=== PATIENT | female | born 1945 | race Caucasian/White ===

== ENCOUNTER → 2017-06-22 | Outpatient (CLI) | payer OTHER, MEDICARE ==
[~2017-06-22] MED LIST: AMLO10TA2 PO; CEPH-37 PO; CYAN500L3 PO; FURO20TA PO; GABA600T PO; MONT10TA23 PO; TRAM50TA2 PO; ZOLP10TA PO
== END | disposition home or self-care (01) ==
LOC: LAB 07:02
PROVIDERS: ATTEND Physician Assistant
DX: N39.0 Urinary tract infection, site not specified (principal)
CPT/HCPCS: 87086

== ENCOUNTER 2018-07-03 14:37 | Inpatient (IN) | payer OTHER, MEDICARE ==
[~2018-07-03] VITALS: Ht 165.1 cm; Wt 89.0 kg
[2018-07-03 15:36] LABS: Basophils # (auto) 0.1 uL; Basophils % (auto) 1.3 % (0.0-2.0); Eosinophils # (auto) 0.2 uL; Eosinophils % (auto) 1.8 % (0.0-7.0); Hematocrit 44.6 % (36.0-46.0); Hemoglobin 15.6 g/dL (12.2-16.2); Lymphocytes # (auto) 4.1 uL; Lymphocytes % (auto) 39.9 % (10.0-50.0); Mean Corpuscular Hemoglobin 33.9 pg (28.0-32.0); Mean Corpuscular Volume 96.8 fL (80.0-100.0); Monocytes # (auto) 1.3 uL; Monocytes % (auto) 12.5 % (0.0-12.0); Neutrophils # (auto) 4.5 uL; Neutrophils % (auto) 44.5 % (37.0-80.0); Nucleated Red Blood Cells % 0.1 %; Platelet Count (auto) 336 10^3/uL (140-450); Red Blood Cells 4.61 10^6/uL (4.0-5.20); Red Cell Distribution Width 13.1 % (11.8-14.3); White Blood Cell 10.2 10^3/uL (4.4-10.8)
[2018-07-03 15:49] LABS: Alanine Aminotransferase 46 U/L (13-56); Albumin 3.8 g/dL (3.4-5.0); Alkaline Phosphatase 61 U/L (45-117); Anion Gap 8 (5-15); Aspartate Aminotransferase 23 U/L (15-37); BUN/Creatinine Ratio 6.1; Bilirubin, Total 0.4 mg/dL (0.2-1.0); Blood Urea Nitrogen 19 mg/dL (7-18); Calcium 8.9 mg/dL (8.5-10.1); Carbon Dioxide 27 mmol/L (21-32); Chloride 100 mmol/L (98-107); GFR African American 19 mL/min; GFR Non-African American 16 mL/min; Glucose 157 mg/dL (74-106); Sodium 135 mmol/L (136-145); Total Protein 7.3 g/dL (6.4-8.2)
[2018-07-03] MEDS ORDERED: NITROGLYCERIN 0.4 MG SL TAB SL ONE (16:00)
[2018-07-03 19:31] LABS: Urine Bacteria FEW /hpf (None Seen); Urine Blood Negative /uL (Negative); Urine Mucus FEW (None Seen); Urine Specific Gravity 1.016 (1.001-1.035); Urine WBC 2 /hpf (0 - 5)
[2018-07-03] MEDS ORDERED: MORPHINE SULF INJ 2 MG/ML SYRINGE 1ML IV ONE (20:45)
[2018-07-03] MEDS ORDERED: POTASSIUM CHL 20 Meq TABLET PO ONE (21:00)
[2018-07-03] MEDS ORDERED: ONDANSETRON HCL 4 MG/2 ML VIAL IV PRN (21:00)
[2018-07-03] MEDS ORDERED: DEXTROSE (50%) 50ML SYRG IV PRN (21:00)
[2018-07-03] MEDS ORDERED: ACETAMINOPHEN 325 MG TAB PO PRN (21:00)
[2018-07-03] MEDS ORDERED: cefTRIAXone 1GM/10ml IVPUSH 10 ML IV ONE (21:00)
[2018-07-03] MEDS ORDERED: NITROGLYCERIN 0.4 MG SL TAB SL PRN (21:30)
[2018-07-03] MEDS ORDERED: MORPHINE SULF INJ 2 MG/ML SYRINGE 1ML IV PRN (21:30)
[2018-07-03] MEDS: GABAPENTIN 300 MG CAP PO SCH (22:00)
[2018-07-03 22:45] VITALS: BP 129/62
[2018-07-03 23:05] VITALS: BP 129/62
[2018-07-03] MEDS: MONTELUKAST SODIUM 10 MG TAB PO SCH (23:13)
[2018-07-03] MEDS: ACCU-CHEK COMFORT CURVE STRIP VI SCH (23:13)
[2018-07-03] MEDS: InsuLIN REG 1unit/0.01ml Soln (100units/ml) SC SCH (23:18)
[2018-07-03] MEDS ORDERED: LINA145C OR (23:31)
[2018-07-03] MEDS ORDERED: ZOLP10TA PO (23:31)
[2018-07-03] MEDS ORDERED: METF-370 PO (23:31)
[2018-07-03] MEDS ORDERED: LISI2.5T47 PO (23:31)
[2018-07-04] MEDS ORDERED: TEMAZEPAM 15 MG CAP PO ONE (01:30)
[2018-07-04] MEDS: HYDROcodone-ACET 5/325MG TAB PO PRN ×2 (04:00→08:21)
[2018-07-04 05:00] VITALS: BP 130/69
[2018-07-04 05:59] LABS: Basophils # (auto) 0.3 uL; Eosinophils # (auto) 0.4 uL; Eosinophils % (auto) 2.7 % (0.0-7.0); Hematocrit 46.4 % (36.0-46.0); Hemoglobin 15.7 g/dL (12.2-16.2); Lymphocytes # (auto) 7.4 uL; Lymphocytes % (auto) 49.8 % (10.0-50.0); Mean Corpuscular Hemoglobin 32.5 pg (28.0-32.0); Mean Corpuscular Hgb Conc. 33.8 g/dL (32.0-36.0); Mean Corpuscular Volume 96.3 fL (80.0-100.0); Monocytes % (auto) 13.3 % (0.0-12.0); Neutrophils # (auto) 4.8 uL; Neutrophils % (auto) 32.2 % (37.0-80.0); Nucleated Red Blood Cells % 0.1 %; Platelet Count (auto) 293 10^3/uL (140-450); Red Blood Cells 4.82 10^6/uL (4.0-5.20); Red Cell Distribution Width 13.2 % (11.8-14.3); White Blood Cell 14.9 10^3/uL (4.4-10.8)
[2018-07-04] MEDS: ACCU-CHEK COMFORT CURVE STRIP VI SCH ×3 (06:00→21:14)
[2018-07-04] MEDS: InsuLIN REG 1unit/0.01ml Soln (100units/ml) SC SCH ×3 (06:00→21:14)
[2018-07-04 06:22] LABS: Albumin 3.5 g/dL (3.4-5.0); BUN/Creatinine Ratio 12.1; Calcium 9.4 mg/dL (8.5-10.1); Potassium 3.8 mmol/L (3.5-5.1)
[2018-07-04 06:25] LABS: Bilirubin, Total 0.5 mg/dL (0.2-1.0)
[2018-07-04] MEDS: cefTRIAXone 1GM/10ml IVPUSH 10 ML IV SCH (08:26)
[2018-07-04] MEDS ORDERED: TRAM-297 PO (08:34)
[2018-07-04 09:00] VITALS: BP 116/67
[2018-07-04] MEDS: GABAPENTIN 300 MG CAP PO SCH (10:00)
[2018-07-04] MEDS: ASPirin 81 mg TAB PO SCH (10:32)
[2018-07-04] MEDS: PANTOPRAZOLE 40 MG TAB PO SCH (10:32)
[2018-07-04 13:00] VITALS: BP 113/58
[2018-07-04 17:00] VITALS: BP 118/80
[2018-07-04] MEDS ORDERED: LISI-706 PO (18:18)
[2018-07-04] MEDS: MONTELUKAST SODIUM 10 MG TAB PO SCH (21:10)
[2018-07-04 22:00] VITALS: BP 129/61
[2018-07-04] MEDS ORDERED: ZOLPIDEM TARTRATE 5 MG TAB PO ONE (22:00)
[2018-07-05 05:00] VITALS: BP 114/60
[2018-07-05] MEDS ORDERED: LINACLOTIDE 145 MCG PO SCH (06:00)
[2018-07-05 06:50] LABS: Basophils # (auto) 0.1 uL; Basophils % (auto) 1.3 % (0.0-2.0); Eosinophils # (auto) 0.4 uL; Eosinophils % (auto) 5.3 % (0.0-7.0); Hematocrit 42.5 % (36.0-46.0); Hemoglobin 14.8 g/dL (12.2-16.2); Lymphocytes % (auto) 49.5 % (10.0-50.0); Mean Corpuscular Hemoglobin 33.8 pg (28.0-32.0); Mean Corpuscular Hgb Conc. 34.7 g/dL (32.0-36.0); Mean Corpuscular Volume 97.4 fL (80.0-100.0); Monocytes # (auto) 1.1 uL; Neutrophils # (auto) 2.4 uL; Neutrophils % (auto) 29.9 % (37.0-80.0); Nucleated Red Blood Cells % 0.3 %; Platelet Count (auto) 339 10^3/uL (140-450); Red Blood Cells 4.37 10^6/uL (4.0-5.20); Red Cell Distribution Width 13.1 % (11.8-14.3); White Blood Cell 8.1 10^3/uL (4.4-10.8)
[2018-07-05] MEDS: InsuLIN REG 1unit/0.01ml Soln (100units/ml) SC SCH ×2 (07:00→11:30)
[2018-07-05 07:21] LABS: BUN/Creatinine Ratio 18.4; Calcium 8.8 mg/dL (8.5-10.1); Magnesium 2.5 mg/dL (1.6-2.6); Phosphorus 3.3 mg/dL (2.5-4.90); Potassium 3.7 mmol/L (3.5-5.1); Uric Acid 8.4 mg/dL (2.6-6.0)
[2018-07-05] MEDS: ACCU-CHEK COMFORT CURVE STRIP VI SCH ×2 (07:27→11:30)
[2018-07-05] MEDS ORDERED: ADENOSINE 75 MG in GIVE UN-DILUTED 0 ML IV STA (08:12)
[2018-07-05] MEDS: cefTRIAXone 1GM/10ml IVPUSH 10 ML IV SCH (08:19)
[2018-07-05 08:59] VITALS: BP 125/63
[2018-07-05] MEDS: PANTOPRAZOLE 40 MG TAB PO SCH (09:41)
[2018-07-05] MEDS: ASPirin 81 mg TAB PO SCH (09:41)
[2018-07-05] MEDS: GABAPENTIN 300 MG CAP PO SCH (09:42)
[2018-07-05 10:13] VITALS: BP 131/68
[2018-07-05 13:04] VITALS: BP 135/80
[2018-07-05] MEDS ORDERED: TRAMADOL 100 MG PO SCH (18:00)
[2018-07-06] MEDS ORDERED: LINACLOTIDE 145 MCG PO SCH (08:00)
== END 2018-07-05 14:55 | disposition home or self-care (01) | DRG 302 ==
LOC: ER 14:41 → TELE 14:42 → MERGE 14:42 → TELE-WESTW 22:54
PROVIDERS: ADMIT Nurse Practitioner; ATTEND Internal Medicine
DX: I25.10 Atherosclerotic heart disease of native coronary artery without angina pectoris (principal); N17.0 Acute kidney failure with tubular necrosis; E11.9 Type 2 diabetes mellitus without complications; E78.5 Hyperlipidemia, unspecified; E86.0 Dehydration; I10 Essential (primary) hypertension; Z82.49 Family history of ischemic heart disease and other diseases of the circulatory system; Z83.3 Family history of diabetes mellitus; Z90.710 Acquired absence of both cervix and uterus; Z88.2 Allergy status to sulfonamides; I69.398 Other sequelae of cerebral infarction; Z84.89 Family history of other specified conditions; Z81.1 Family history of alcohol abuse and dependence
CPT/HCPCS: 36415; 71045; 76775; 78452; 80048; 80053; 81001; 82962; 83036; 83735; 84100; 84443; 84484; 84550; 85025; 93005; 93017; 93306; J0153; J0696; J1815

== ENCOUNTER → 2022-09-21 | Outpatient (CLI) | payer MEDICARE, BC ==
[~2022-09-21] MED LIST changes: +AMLO-496 PO; -AMLO10TA2 PO; +FURO1TAB33 PO; -FURO20TA PO; +IOHEXOL 350 MG/ML 100ML IJ ONE; +LINA145C OR; +LISI-706 PO; +METF-370 PO; +READI-CAT 2 (BARIUM SULF)(VANILLA SMOOTHIE) 450ML ONE; +TRAM-297 PO
[2022-09-21 11:00] VITALS: BP 152/65
== END | disposition home or self-care (01) ==
LOC: Rad HDHVI 10:48
PROVIDERS: ATTEND Internal Medicine Cardiovascular Disease
DX: I63.9 Cerebral infarction, unspecified (principal); R94.4 Abnormal results of kidney function studies
CPT/HCPCS: 36415; 70450; 82565; 84520; G0463; Q9967

== ENCOUNTER → 2022-09-22 | Outpatient (CLI) | payer OTHER, MEDICARE ==
[~2022-09-22] MED LIST changes: -IOHEXOL 350 MG/ML 100ML IJ ONE; -READI-CAT 2 (BARIUM SULF)(VANILLA SMOOTHIE) 450ML ONE
[2022-09-22 11:10] VITALS: BP 127/68
[2022-09-22 11:41] VITALS: BP 118/74
== END | disposition home or self-care (01) ==
LOC: Rad HDHVI 10:55
PROVIDERS: ATTEND Internal Medicine Cardiovascular Disease
DX: K57.30 Diverticulosis of large intestine without perforation or abscess without bleeding (principal); M47.816 Spondylosis without myelopathy or radiculopathy, lumbar region; K76.0 Fatty (change of) liver, not elsewhere classified; K29.40 Chronic atrophic gastritis without bleeding
CPT/HCPCS: 74177; G0463

== ENCOUNTER → 2022-09-25 | Outpatient (CLI) | payer OTHER, MEDICARE | END | disposition home or self-care (01) | LOC: Rad HDHVI 12:45 | PROVIDERS: ATTEND Internal Medicine Cardiovascular Disease | DX: I10 Essential (primary) hypertension (principal); E78.5 Hyperlipidemia, unspecified | CPT/HCPCS: 93306 ==

== ENCOUNTER → 2022-10-07 | Outpatient (CLI) | payer OTHER, MEDICARE | END | disposition home or self-care (01) | LOC: Rad HDHVI 10:56 | PROVIDERS: ATTEND Internal Medicine Cardiovascular Disease | DX: I10 Essential (primary) hypertension (principal); E78.5 Hyperlipidemia, unspecified | CPT/HCPCS: 93880 ==

== ENCOUNTER → 2022-10-09 | Outpatient (CLI) | payer OTHER, MEDICARE ==
[~2022-10-09] VITALS: Ht 167.6 cm; Wt 83.9 kg
[~2022-10-09] MED LIST changes: +ADENOSINE 70 MG in GIVE UN-DILUTED 0 ML IV ONE; +ADENOSINE 90 MG/30 ML INJ IV ONE
== END | disposition home or self-care (01) ==
LOC: Rad HDHVI 09:01
PROVIDERS: ATTEND Internal Medicine Cardiovascular Disease
DX: R07.9 Chest pain, unspecified (principal); I73.9 Peripheral vascular disease, unspecified; I63.9 Cerebral infarction, unspecified; E78.00 Pure hypercholesterolemia, unspecified; I10 Essential (primary) hypertension; E11.9 Type 2 diabetes mellitus without complications; Z82.49 Family history of ischemic heart disease and other diseases of the circulatory system; Z79.84 Long term (current) use of oral hypoglycemic drugs; Z79.899 Other long term (current) drug therapy
CPT/HCPCS: 78452; 93005; 96374; 96375; A9500; J0153

== ENCOUNTER → 2022-11-16 | Outpatient (CLI) | payer OTHER, MEDICARE, BC ==
[~2022-11-16] MED LIST changes: -ADENOSINE 70 MG in GIVE UN-DILUTED 0 ML IV ONE; -ADENOSINE 90 MG/30 ML INJ IV ONE
== END | disposition home or self-care (01) ==
LOC: Rad HDHVI 13:06
PROVIDERS: ATTEND Internal Medicine Cardiovascular Disease
DX: I73.9 Peripheral vascular disease, unspecified (principal); E78.5 Hyperlipidemia, unspecified
CPT/HCPCS: 93925

== ENCOUNTER 2023-01-24 16:42 | Inpatient (IN) | payer BC, MEDICARE, OTHER ==
[~2023-01-24] VITALS: Ht 165.1 cm; Wt 87.3 kg
[2023-01-24] MEDS ORDERED: MORPHINE SULFATE 4 MG/ML SYR/VIAL IV ONE (17:30)
[2023-01-24] MEDS ORDERED: SODIUM CHLORIDE 0.9% 500 ML IVB ONE (17:30)
[2023-01-24] MEDS ORDERED: ONDANSETRON HCL 4 MG/2 ML VIAL IV ONE (17:30)
[2023-01-24] MEDS ORDERED: PANTOPRAZOLE 40 MG/10 ML VIAL INJ IV ONE (17:30)
[2023-01-24 17:59] LABS: Basophils # (auto) 0.2 10 ^3/uL (0-0.2); Basophils % (auto) 1.1 % (0.0-2.0); Eosinophils # (auto) 0.3 10 ^3/uL (0-0.8); Eosinophils % (auto) 1.4 % (0.0-7.0); Hematocrit 41.5 % (36.0-46.0); Hemoglobin 14.1 g/dL (12.2-16.2); Lymphocytes # (auto) 6.2 10 ^3/uL (0.4-5.4); Lymphocytes % (auto) 34.4 % (10.0-50.0); Mean Corpuscular Hemoglobin 33.4 pg (28.0-32.0); Mean Corpuscular Volume 98.2 fL (80.0-100.0); Monocytes # (auto) 1.4 10 ^3/uL (0-1.3); Monocytes % (auto) 7.7 % (0.0-12.0); Neutrophils # (auto) 9.9 10 ^3/uL (1.6-8.6); Neutrophils % (auto) 55.4 % (37.0-80.0); Nucleated Red Blood Cells % 0.1 %; Red Blood Cells 4.23 10^6/uL (4.0-5.20)
[2023-01-24 18:13] LABS: Albumin 3.8 g/dL (3.4-5.0); Calcium 9.5 mg/dL (8.5-10.1); Potassium 3.5 mmol/L (3.5-5.1)
[2023-01-24 18:17] LABS: BUN/Creatinine Ratio 18.4; Bilirubin, Total 0.3 mg/dL (0.2-1.0); Total Protein 7.2 g/dL (6.4-8.2)
[2023-01-25 04:39] LABS: Urine Blood Negative /uL (Negative); Urine Specific Gravity 1.025 (1.001-1.035)
[2023-01-25 04:46] LABS: Urine Bacteria None Seen /hpf (None Seen)
[2023-01-25 04:47] LABS: Urine WBC 6 /hpf (0 - 5)
[2023-01-25] MEDS ORDERED: PIPERACILLIN-TAZOB 3.375GM 100 ML IV ONE (05:45)
[2023-01-25] MEDS ORDERED: ALBUTEROL SULF HFA 90MCG INH 200DOSE IN PRN (09:45)
[2023-01-25] MEDS ORDERED: cefTRIAXone 1GM/50ML D5W 50 ML IV ONE (09:45)
[2023-01-25] MEDS ORDERED: MORPHINE SULFATE INJ 2 MG/ml SYRG IV PRN (09:45)
[2023-01-25] MEDS ORDERED: NITROGLYCERIN 0.4 MG SL TAB SL PRN (09:45)
[2023-01-25] MEDS ORDERED: DEXTROSE (50%) 50ML SYRG IV PRN (09:45)
[2023-01-25] MEDS ORDERED: SODIUM CHLORIDE 0.9% 1,000 ML IV ONE (09:45)
[2023-01-25] MEDS ORDERED: ALBUTEROL SULF 2.5 MG/0.5ML(0.5%) NEB SOLN NEB PRN (10:00)
[2023-01-25] MEDS ORDERED: DexAMETHasone SOD PHOS 10MG/1ML VIAL INJ IV SCH (10:00)
[2023-01-25] MEDS ORDERED: PANTOPRAZOLE 40 MG/10 ML VIAL INJ IV SCH (10:00)
[2023-01-25] MEDS ORDERED: ZINC SULFATE 220mg CAP or TAB PO SCH (10:00)
[2023-01-25] MEDS ORDERED: CHOLECALCIFEROL (VITD3) 2,000 UNIT CAP/TAB PO SCH (10:00)
[2023-01-25] MEDS ORDERED: ASCORBIC ACID 1,000 MG TAB PO SCH (10:00)
[2023-01-25] MEDS ORDERED: amLODIPine BESYLATE 5 MG TAB PO SCH (10:18)
[2023-01-25 10:22] VITALS: BP 110/59
[2023-01-25] MEDS: ACCU-CHEK COMFORT CURVE STRIP VI SCH ×3 (13:29→22:00)
[2023-01-25] MEDS: InsuLIN REG 1unit/0.01ml Soln (100units/ml) SC SCH ×3 (13:32→22:39)
[2023-01-25] MEDS: ENOXAPARIN SOD 40 MG/0.4 ML SYRINGE SC SCH ×2 (13:40→22:40)
[2023-01-25 14:01] LABS: Lactic Acid w/Reflex 2.1 mmol/L (0.4-2.0)
[2023-01-25 14:06] LABS: Alanine Aminotransferase 32 U/L (13-56); Albumin 3.5 g/dL (3.4-5.0); Anion Gap 7 (5-15); Aspartate Aminotransferase 19 U/L (15-37); BUN/Creatinine Ratio 27.3; Blood Urea Nitrogen 33 mg/dL (7-18); Calcium 9.1 mg/dL (8.5-10.1); Carbon Dioxide 27 mmol/L (21-32); Chloride 103 mmol/L (98-107); GFR African American 56 mL/min; GFR Non-African American 46 mL/min; Glucose 129 mg/dL (74-106); Magnesium 2.2 mg/dL (1.6-2.6); Potassium 3.5 mmol/L (3.5-5.1); Sodium 137 mmol/L (136-145)
[2023-01-25 14:08] LABS: Alkaline Phosphatase 58 U/L (45-117); Basophils # (auto) 0.1 10 ^3/uL (0-0.2); Basophils % (auto) 0.4 % (0.0-2.0); Bilirubin, Total 0.6 mg/dL (0.2-1.0); Eosinophils # (auto) 0.2 10 ^3/uL (0-0.8); Hematocrit 40.9 % (36.0-46.0); Hemoglobin 13.9 g/dL (12.2-16.2); Lymphocytes # (auto) 4.7 10 ^3/uL (0.4-5.4); Lymphocytes % (auto) 22.3 % (10.0-50.0); Mean Corpuscular Hemoglobin 33.5 pg (28.0-32.0); Mean Corpuscular Hgb Conc. 33.9 g/dL (32.0-36.0); Mean Corpuscular Volume 98.8 fL (80.0-100.0); Monocytes # (auto) 2.1 10 ^3/uL (0-1.3); Neutrophils # (auto) 14.1 10 ^3/uL (1.6-8.6); Neutrophils % (auto) 66.3 % (37.0-80.0); Red Blood Cells 4.14 10^6/uL (4.0-5.20); Red Cell Distribution Width 13.8 % (11.8-14.3); White Blood Cell 21.3 10^3/uL (4.4-10.8)
[2023-01-25 14:11] LABS: Cholesterol 150 mg/dL (< 200)
[2023-01-25 14:14] LABS: HDL Cholesterol 60 mg/dL (40-59); LDL Cholesterol 78 mg/dL (< 100); Triglycerides 182 mg/dL (< 150)
[2023-01-25 14:32] LABS: Thyroid Stimulating Hormone 0.95 uIU/mL (0.358-3.74)
[2023-01-25] MEDS: GABAPENTIN 300 MG CAP PO SCH ×2 (15:34→22:51)
[2023-01-25] MEDS: SODIUM CHLORIDE 0.9% 1,000 ML IV SCH ×2 (15:34→19:23)
[2023-01-25 16:58] LABS: CRP High Sensitivity 3.23 mg/dL (< 0.3)
[2023-01-25] MEDS ORDERED: ZOLPIDEM TARTRATE 5 MG TAB PO SCH (22:00)
[2023-01-25] MEDS: ONDANSETRON HCL 4 MG/2 ML VIAL IV PRN (22:39)
[2023-01-25] MEDS: MORPHINE SULFATE INJ 2 MG/ml SYRG IV PRN (22:51)
[2023-01-26] MEDS: MORPHINE SULFATE INJ 2 MG/ml SYRG IV PRN ×2 (03:24→07:48)
[2023-01-26] MEDS: SODIUM CHLORIDE 0.9% 1,000 ML IV SCH (03:54)
[2023-01-26] MEDS: GABAPENTIN 300 MG CAP PO SCH (06:00)
[2023-01-26 06:30] LABS: Potassium 3.9 mmol/L (3.5-5.1)
[2023-01-26 06:39] LABS: BUN/Creatinine Ratio 25.2; Bilirubin, Total 0.4 mg/dL (0.2-1.0); Calcium 8.2 mg/dL (8.5-10.1); Total Protein 6.3 g/dL (6.4-8.2)
[2023-01-26 06:44] LABS: Basophils # (auto) 0 10 ^3/uL (0-0.2); Eosinophils # (auto) 0 10 ^3/uL (0-0.8); Hemoglobin 12.6 g/dL (12.2-16.2)
[2023-01-26 06:47] LABS: Basophils % (auto) 0.2 % (0.0-2.0); Hematocrit 37.7 % (36.0-46.0); Lymphocytes # (auto) 2.5 10 ^3/uL (0.4-5.4); Lymphocytes % (auto) 13.6 % (10.0-50.0); Mean Corpuscular Hemoglobin 33.8 pg (28.0-32.0); Mean Corpuscular Hgb Conc. 33.3 g/dL (32.0-36.0); Mean Corpuscular Volume 101.7 fL (80.0-100.0); Monocytes % (auto) 5.4 % (0.0-12.0); Neutrophils # (auto) 14.8 10 ^3/uL (1.6-8.6); Neutrophils % (auto) 80.8 % (37.0-80.0); Red Blood Cells 3.71 10^6/uL (4.0-5.20); Red Cell Distribution Width 13.8 % (11.8-14.3); White Blood Cell 18.4 10^3/uL (4.4-10.8)
[2023-01-26] MEDS: ACCU-CHEK COMFORT CURVE STRIP VI SCH (06:53)
[2023-01-26] MEDS: InsuLIN REG 1unit/0.01ml Soln (100units/ml) SC SCH (06:54)
[2023-01-26] MEDS: ONDANSETRON HCL 4 MG/2 ML VIAL IV PRN (07:47)
[2023-01-26 08:14] VITALS: BP 142/68
[2023-01-26] MEDS ORDERED: cefTRIAXone 1GM/50ML D5W 50 ML IV SCH (09:00)
[2023-01-26] MEDS ORDERED: LISINOPRIL 20 MG TAB PO SCH (10:00)
[2023-01-26] MEDS ORDERED: HCTZ 25 MG TAB PO SCH (10:00)
== END 2023-01-26 09:24 | disposition left against medical advice (07) | DRG 689 ==
LOC: ER 16:42 → TELE 01-25 09:46
PROVIDERS: ADMIT Registered Nurse; ATTEND Registered Nurse
DX: N39.0 Urinary tract infection, site not specified (principal); U07.1 COVID-19; N17.9 Acute kidney failure, unspecified; E78.5 Hyperlipidemia, unspecified; E11.40 Type 2 diabetes mellitus with diabetic neuropathy, unspecified; E11.65 Type 2 diabetes mellitus with hyperglycemia; E66.9 Obesity, unspecified; I10 Essential (primary) hypertension; Z88.8 Allergy status to other drugs, medicaments and biological substances; Z88.2 Allergy status to sulfonamides; Z82.49 Family history of ischemic heart disease and other diseases of the circulatory system; Z86.73 Personal history of transient ischemic attack (TIA), and cerebral infarction without residual deficits; Z88.6 Allergy status to analgesic agent; Z90.49 Acquired absence of other specified parts of digestive tract; Z90.710 Acquired absence of both cervix and uterus; Z68.32 Body mass index [BMI] 32.0-32.9, adult
CPT/HCPCS: 36415; 70450; 71045; 74176; 80053; 80061; 81003; 81015; 82306; 82728; 82962; 83036; 83605; 83615; 83690; 83735; 84443; 85025; 85379; 86141; 87040; 87086; 87426; C9113; G0378; J0696; J1100; J1815; J2405; J2543